=== PATIENT | male | born 1965 | race Caucasian/White ===

== ENCOUNTER → 2017-01-16 | Outpatient (CLI) | payer OTHER, BC | END | disposition home or self-care (01) | LOC: EKG 11:39 | DX: R00.1 Bradycardia, unspecified (principal); M54.9 Dorsalgia, unspecified | CPT/HCPCS: 93005 ==

== ENCOUNTER 2017-07-23 07:17 | Day surgery (SDC) | payer BC ==
[~2017-07-23] VITALS: Ht 171.4 cm; Wt 122.0 kg
[~2017-07-23 07:17] MED LIST: DOXYCYCLINE HY100 MG PO; FUROSEMIDE20 MG PO; GLIPIZIDE10 MG PO; JANUVIA100 MG PO; LACTAID ULT9000 UNIT PO; LEVOTHYROXINE50 MCG PO; METFORMIN HCL500 MG PO; MICRO-K10 ME2 PO; ZYRTEC-D1 TABLE1 PO
[2017-07-23] MEDS ORDERED: ASPIRIN325 MG PO (07:55)
[2017-07-23 08:14] LABS: POINT-OF-CARE METER ID UU13113696
[2017-07-23 10:45] LABS: POINT-OF-CARE METER ID UU13113819
== END 2017-07-23 14:30 | disposition home or self-care (01) ==
LOC: CATH 07:17
PROVIDERS: Internal Medicine Interventional Cardiology
DX: R07.9 Chest pain, unspecified (principal); R94.39 Abnormal result of other cardiovascular function study; I10 Essential (primary) hypertension; E66.01 Morbid (severe) obesity due to excess calories; Z68.41 Body mass index [BMI] 40.0-44.9, adult; E11.65 Type 2 diabetes mellitus with hyperglycemia; E78.2 Mixed hyperlipidemia; J44.9 Chronic obstructive pulmonary disease, unspecified; Z79.84 Long term (current) use of oral hypoglycemic drugs; Z82.49 Family history of ischemic heart disease and other diseases of the circulatory system
CPT/HCPCS: 82948; C1769; C1887; J1644; J2250; J3010

== ENCOUNTER → 2017-11-26 | Outpatient (CLI) | payer BC ==
[~2017-11-26] VITALS: Ht 171.4 cm; Wt 122.0 kg
[~2017-11-26] MED LIST changes: +ASPIRIN325 MG PO
== END | disposition home or self-care (01) ==
LOC: AMB 08:42
PROVIDERS: Internal Medicine Gastroenterology
DX: Z12.11 Encounter for screening for malignant neoplasm of colon (principal); K63.5 Polyp of colon; R16.2 Hepatomegaly with splenomegaly, not elsewhere classified; K44.9 Diaphragmatic hernia without obstruction or gangrene; K29.70 Gastritis, unspecified, without bleeding
CPT/HCPCS: 82948; 88305; 88342 TC; J2250; J3010